=== PATIENT | male | born 1965 | race Caucasian/White ===

== ENCOUNTER 2018-09-10 17:47 | Emergency (ER) | payer OTHER, MEDICAID ==
[~2018-09-10] VITALS: Ht 170.2 cm; Wt 84.8 kg
--- NOTE | 2018-09-10 17:52 | NUR ---
Patient to ER bed 01 to gown for evaluation. Side rails up.
[2018-09-10 17:53] VITALS: BP_SYST 145
--- NOTE | 2018-09-10 17:53 | NUR ---
Pt presents to ED by [facility] for med clearance and BA.
--- NOTE | 2018-09-10 18:07 | NUR ---
ER at bedside examining patient.
--- NOTE | 2018-09-10 18:10 | NUR ---
Patient transported to radiology via gurney, accompanied by rad staff and [facility].
--- NOTE | 2018-09-10 18:20 | NUR ---
Returned from radiology, back to [facility].
[2018-09-10] MEDS ORDERED: DIPH-TET-PERTUS Vaccine 0.5 ML VIAL (ADACEL) I.M. ONE (18:30)
[2018-09-10] MEDS ORDERED: KETOROLAC TROMETHAMINE 60 MG/2 ML VIAL IM ONE (18:30)
--- NOTE | 2018-09-10 18:55 | NUR ---
Written and verbal consent obtained from patient for blood alcohol, name and verified by patient. Disinfected patient's skin with betadine that did not contain alcohol or other volatile organic compound. Collected the blood from the subject named by venipuncture, in the presence of Officer Toño#[id number]. Used a sterile, dry hypodermic needle and dry vacuum blood collection. Two dry vacuum blood collection was supplied by the officer named above. Withdrew a specimen of blood from Left antecubital of the subject named above. Inverted both blood tube several times to ensure that the preservative and anticoagulant were thoroughly mixed in the blood specimen. I initialed both blood tube label for identification. The labeled blood tubes was handed directly to the Officer named above. The blood tubes stopper remained in place while I had possession of the blood tubes. The Officer placed tubes into envelope and sealed it in my presence. Envelope initialed by myself and Officer named above. Patient tolerated well, bandage applied, and bleeding controlled.
--- NOTE | 2018-09-10 19:05 | NUR ---
Pt medicated for pain.Pt tolerated well. Continuing to monitor
[2018-09-10 20:40] VITALS: BP_SYST 136
--- NOTE | 2018-09-10 20:40 | NUR ---
Patient and Quality Improvement Analyst given written and verbal discharge instructions and verbalizes understanding. ER MD Cavazos discussed with patient the results and treatment provided. Patient in stable condition. ID arm band removed. IV catheter removed intact and dressing applied, no active bleeding. No Rx given. Patient educated on pain management and to follow up with PMD. Pain Scale 0/10 Opportunity for questions provided and answered. Medication side effect fact sheet provided.
== END 2018-09-10 20:40 ==
LOC: SED 17:47
DX: S93.402A Sprain of unspecified ligament of left ankle, initial encounter (principal); S83.92XA Sprain of unspecified site of left knee, initial encounter; M54.5 Low back pain; G89.29 Other chronic pain; W10.9XXA Fall (on) (from) unspecified stairs and steps, initial encounter; Y93.89 Activity, other specified; Y92.89 Other specified places as the place of occurrence of the external cause; Y99.8 Other external cause status
CPT/HCPCS: 70450; 73564; 73610; 90471; 90715; 96372; 99284; J1885